=== PATIENT | female | born 1945 | race Caucasian/White ===

== ENCOUNTER 2016-08-31 20:28 | Emergency (ER) | payer MEDICARE, OTHER ==
[~2016-08-31] VITALS: Ht 165.1 cm; Wt 71.4 kg
[~2016-08-31 20:28] MED LIST: ASPI1TAB69 PO; CALC1TAB33 PO; CALC200S NASAL; ESOM1CAP6 PO; PREM0.452 PO; SIMV40TA PO; WARF-23 PO
[2016-08-31 20:43] VITALS: BP 146/86; PULSE 83; RESP 18; TEMP 98.1; O2SAT 96
--- NOTE | 2016-08-31 21:06 | PD ---
HPI Chief Complaint: Laceration/Skin Injury Time Seen by Provider: 20:52 Travel History International Travel<30 days: No Contact w/Intl Traveler<30days: No Traveled to known affect area: No History of Present Illness HPI 70 yo F c/o of bleeding from R long digit for about 2 hours. The patient takes Coumadin reports the most recent INR was 3.0, about 4 days ago, which is normal for her. She has applied pressure with gauze to no avail. The patient accidentally cut her finger on a knife while doing dishes. No other complaint. PFSH Past Medical History Cardiovascular Problems: Yes (HEART VALVE REPLACEMENT) High Cholesterol: Yes Diabetes: No Diminished Hearing: No GERD: Yes Hiatal Hernia: Yes Immunizations Current: Yes Menopausal: Yes : 2 Para: 2 Tubal Ligation: Yes (1977) Past Surgical History Cholecystectomy: Yes (1993) Eye Surgery: Yes (BILAT CATARACT 1996) Tonsillectomy: Yes (1962) Valve Replacement: Yes (AORTIC VALVE REPLACEMENT 2001) Other Surgery: Yes (BREAST REDUCTION 2005) Social History Alcohol Use: Yes (2 DRINKS A MONTH MIX DRINKS) Tobacco Use: No Substance Use: No Allergies-Medications (Allergen,Severity, Reaction): Coded Allergies: Codeine (Verified Adverse Reaction, Mild, VOMITING & VERTIGO, 08/31/16) Reported Meds & Prescriptions Reported Meds & Active Scripts Active Reported Warfarin 5 Mg Tab 5 Mg PO DAILY Simvastatin 40 Mg Tab 40 Mg PO HS Prempro Blister Pack (Estrogens Conj/Medroxyprogest Acet) 0.45-1.5 Mg Tab 1 Tab PO DAILY Nexium 24 HR (Esomeprazole DR) 20 Mg Capdr 40 Mg PO BID Calcitrate Plus D (Calcium Citrate-Vitamin D) 315-200 Mg-Unit Tab 1 Tab PO BID Calcitonin ([place]) Nasal [place] (Calcitonin [place]) 200 Units/Act Soln 1 [place] NASAL DAILY Alternate nostrils daily. Aspirin 81 Mg Tabdr 81 Mg PO DAILY Review of Systems General / Constitutional: No: Fever Hematologic/Lymphatic: Positive: Other (blood thinner for aortic valve replacement) Physical Exam Narrative GENERAL: 70 yo F, WNWD, NAD SKIN: Warm and dry. Along the radial aspect of the distal phalanx of the third right digit there is a 3 mm laceration which is all stuffed imperceptibly thin if it were not for the bleeding which occurs within a few seconds of release of pressure. HEAD: Normocephalic. EYES: No scleral icterus. No injection or drainage. MUSCULOSKELETAL: No cyanosis, or edema. Data Data Last Documented VS Vital Signs Date Time Temp Pulse Resp B/P Pulse Ox O2 Delivery O2 Flow Rate FiO2 08/31/16 20:43 98.1 83 18 146/86 96 Vital signs reviewed MDM Medical Decision Making Medical Screen Exam Complete: Yes Emergency Medical Condition: Yes Medical Record Reviewed: Yes Differential Diagnosis Laceration, subtherapeutic INR, anemia Narrative Course Pressure was held and a Steri-Strip was tightly wrapped about the laceration. Dermabond was placed. The patient was reassessed about 5 minutes later and no interval bleeding had occurred. Procedures Procedure Narrative LACERATION LOCATION: Distal phalanx of the right third digit LENGTH: 0.5 centimeter NUMBER OF STITCHES/FTAOU: Dermabond REPAIR: The area of the laceration was prepped with Betadine and sterilely draped. The wound was closed using Dermabond. This was a single layer repair. The patient was advised to keep the dressing clean and dry. Patient tolerated the procedure well. Diagnosis Primary Impression: Laceration of finger Qualified Code: S61.212A - Laceration of right middle finger without foreign body without damage to nail, initial encounter Referrals: Primary Care Physician 2 days Additional Instructions: You have a choice when it comes to health care, and we are glad that you chose [facility]. Hopefully, we have met your expectations on today's visit. You are welcome to return to [facility] at any time, as we are committed to meeting the health care needs of our community. Med/Other Pt SpecificInfo: No Change to Meds Disposition: 01 DISCHARGE HOME Condition: Stable Roman Loera MD Aug 31, 2016 21:06
[2016-08-31] MEDS ORDERED: ZOCO5TAB PO (21:10)
[2016-08-31] MEDS ORDERED: ASPI-110 PO (21:10)
[2016-08-31] MEDS ORDERED: WARF-18 PO (21:10)
[2016-08-31] MEDS ORDERED: CALC1TAB87 PO (21:10)
== END 2016-08-31 21:17 | disposition home or self-care (01) ==
LOC: PHEFT 20:28
DX: S61.212A Laceration without foreign body of right middle finger without damage to nail, initial encounter (principal); E78.00 Pure hypercholesterolemia, unspecified; Z79.01 Long term (current) use of anticoagulants; Z86.79 Personal history of other diseases of the circulatory system; Z87.19 Personal history of other diseases of the digestive system; W26.0XXA Contact with knife, initial encounter; Y93.G1 Activity, food preparation and clean up
CPT/HCPCS: 12001